=== PATIENT | male | born 1990 | race African-American/Black ===

== ENCOUNTER 2018-05-07 12:56 | Emergency (ER) | payer MEDICAID, OTHER ==
[~2018-05-07] VITALS: Ht 177.8 cm; Wt 100.0 kg
[~2018-05-07 12:56] MED LIST: RISP0.5T19 PO
[2018-05-07 14:30] VITALS: BP 138/81
== END 2018-05-07 14:40 | disposition home or self-care (01) ==
LOC: EMS 12:57
DX: S43.101A Unspecified dislocation of right acromioclavicular joint, initial encounter (principal); F31.9 Bipolar disorder, unspecified; Z91.018 Allergy to other foods; Z91.013 Allergy to seafood; W19.XXXA Unspecified fall, initial encounter; Y93.89 Activity, other specified; Y92.89 Other specified places as the place of occurrence of the external cause; Y99.8 Other external cause status
CPT/HCPCS: 99284

== ENCOUNTER 2018-05-30 15:26 | Emergency (ER) | payer OTHER ==
[~2018-05-30] VITALS: Ht 177.8 cm; Wt 100.0 kg
[2018-05-30 15:36] VITALS: BP 146/78
== END 2018-05-30 16:23 | disposition home or self-care (01) ==
LOC: EMS 15:26
DX: S01.112D Laceration without foreign body of left eyelid and periocular area, subsequent encounter (principal); F31.9 Bipolar disorder, unspecified; Z91.013 Allergy to seafood; Z91.018 Allergy to other foods; X58.XXXD Exposure to other specified factors, subsequent encounter
CPT/HCPCS: 99281

== ENCOUNTER 2019-01-14 18:23 | Emergency (ER) | payer OTHER ==
[~2019-01-14] VITALS: Ht 177.8 cm; Wt 131.8 kg
[~2019-01-14 18:23] MED LIST changes: +AMLO-512 PO; +NALT50TA PO; +NALT50TA6 PO; +OLAN10TA3 PO; +OLAN5TAB30 PO; -RISP0.5T19 PO
[2019-01-14] MEDS ORDERED: HYDROGEN PEROXIDE 118 ML SOLUTION TP ONE (20:45)
[2019-01-14] MEDS ORDERED: CARBAMIDE PEROXIDE 6.5% 15 ML OTIC SOLUTION AU ONE (20:45)
[2019-01-14 22:05] VITALS: BP 140/108
== END 2019-01-14 22:26 | disposition home or self-care (01) ==
LOC: EMS 18:24
DX: H61.23 Impacted cerumen, bilateral (principal); R03.0 Elevated blood-pressure reading, without diagnosis of hypertension; F31.9 Bipolar disorder, unspecified; F12.90 Cannabis use, unspecified, uncomplicated; Z91.018 Allergy to other foods; Z91.013 Allergy to seafood
CPT/HCPCS: 69209